=== PATIENT | female | born 1950 ===

== ENCOUNTER → 2016-12-10 | Outpatient (CLI) | payer OTHER | LOC: LAB SRH 10:49 | DX: Z01.812 Encounter for preprocedural laboratory examination (principal); N82.3 Fistula of vagina to large intestine | CPT/HCPCS: 90074; 91631; 92560 ==

== ENCOUNTER 2016-12-11 09:25 | Outpatient (CLI) | payer OTHER ==
--- NOTE | 2016-12-11 16:23 | DIAGNOSTIC IMAGING REPORT ---
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 Oral and rectal contrast also given. COMPARISON: Abdominal ultrasound 02/12/2013 and pelvic ultrasound 01/30/2013.. FINDINGS: ABDOMEN: Lung base are clear. Normal heart size. Hepatomegaly (20.2 cm) with diffuse steatosis. Cholecystectomy. Pancreas, spleen, adrenal glands and the kidneys are normal. Minor atherosclerosis. Moderate stool. There is a 5 cm fat filled midline supra umbilical ventral hernia. PELVIS: Although the rectum appears normal without mass or inflammatory changes, the fat plane between the rectum and vagina is indistinct and there is questionable contrast in the vagina. Tiny amount of air in the bladder. The uterus and adnexa are unremarkable. Surgical clips medial to the cecum suggestive of an appendectomy. Mild degenerative changes of the spine. IMPRESSION: 1. Normal rectum but fat plane between the rectum and vagina is indistinct with questionable contrast in the vagina. Recommend vaginal culture and if E. Coli is present, this would be consistent with a rectovaginal fistula. 2. Hepatomegaly and steatosis 3. Cholecystectomy and appendectomy 4. 5 cm fat filled supraumbilical ventral hernia All CT scans at this facility use dose modulation, iterative reconstruction, and/or weight-based dosing when appropriate to reduce radiation dose to as low as reasonably achievable.
== END 2016-12-11 23:00 ==
LOC: CT SRH 09:25
DX: Z01.812 Encounter for preprocedural laboratory examination (principal); Z01.818 Encounter for other preprocedural examination; N82.3 Fistula of vagina to large intestine; R16.0 Hepatomegaly, not elsewhere classified; E88.89 Other specified metabolic disorders; Z90.49 Acquired absence of other specified parts of digestive tract; Z90.89 Acquired absence of other organs; K43.9 Ventral hernia without obstruction or gangrene

== ENCOUNTER 2016-12-27 17:42 | Emergency (ER) | payer OTHER ==
--- NOTE | 2016-12-27 18:30 | DIAGNOSTIC IMAGING REPORT ---
PROCEDURE: XR CHEST 1 VIEW INDICATION: CHEST PAIN TECHNIQUE: Single view chest. 1813 hours COMPARISON: 07/26/2010 FINDINGS: Low lung volumes accentuates cardiomediastinal contour which appears grossly stable. No significant central venous congestion. The visible lung plascencia are clear. No pneumothorax. Mild lateral pleural thickening on the right, chronic. Intact osseous structures. IMPRESSION: 1. Stable chest. No acute disease.
--- NOTE | 2016-12-27 19:47 | DIAGNOSTIC IMAGING REPORT ---
PROCEDURE: CTA THORAX WITH CONTRAST INDICATION: PULMONARY EMBOLUS TECHNIQUE: 92 ml of Isovue 370 was injected intravenously and axial images were obtained of the chest with 3D sagittal and coronal MIP reconstructions. COMPARISON: 11/06/2008 FINDINGS: Normal opacification of the pulmonary arterial tree without filling defect. The main pulmonary outflow tract is dilated measuring 3.8 cm in transverse diameter. The other pulmonary arteries are of normal caliber. Thoracic aorta is normal caliber with trace atherosclerotic calcification. The great vessels demonstrate a normal branching pattern. Heart size is normal. No pericardial effusion. Benign appearing, mild mediastinal and bilateral hilar adenopathy. No suspicious or bulky adenopathy. No mediastinal mass. The esophagus is normal in caliber without hiatal hernia. The thyroid gland is mildly diffusely enlarged with coarse punctate calcification and a a left lower lobe peripherally calcified nodule. The lungs are clear. The airway is patent and branches normally. No pleural effusions or pneumothorax. Osseous structures are intact. The images obtained of the upper abdomen demonstrate mild hepatic steatosis, hepatomegaly, and cholecystectomy clips. IMPRESSION: 1. No pulmonary embolus. 2. Moderately enlarged main pulmonary outflow tract, increased in size compared to the prior study may indicate primary pulmonary hypertension. Correlate clinically. 3. Benign-appearing mediastinal and hilar adenopathy. 4. Findings called to the emergency room.
--- NOTE | 2016-12-27 21:21 | ED NURSING NOTES ---
Clinical Report - Nurses [facility] [address] [place] [address] 12/27/2016 17:44 Patient: ZARINA SERNA TRIAGE Triage time 17:51. Acuity: LEVEL 3. Chief Complaint: POSSIBLE ALLERGIC REACTION and . "tightness in the throat and the mid chest. I feel like I'm swelling up inside". Alert. No acute distress. --18:04 Brandie Lyman R.N. 17:51 12/27/16. BP: 128/70 taken on the left arm, while sitting. HR: 87. RR: 20. O2 saturation: 100%. Temp: 98.2 F. Pain level now: 01/27. --18:04 Brandie Lyman R.N. 17:51 12/27/16. BP: 128/70 taken on the left arm, while sitting. HR: 87. RR: 20. O2 saturation: 100%. Temp: 98.2 F. Pain level now: 01/27. --18:04 Brandie Lyman R.N. Weight: 81.6 kg estimated. Height/Length: 64 inches Estimated. BMI: 30.9. --17:57 Brandie Lyman R.N. Medications Nitrofurantoin Oral 100mg bid. --17:59 Brandie Lyman R.N. MetFORMIN HCl Oral 500 mg, daily. --18:00 Brandie Lyman R.N. Escitalopram Oxalate Oral, daily. --18:01 Brandie Lyman R.N. Lisinopril Oral. --18:01 Brandie Lyman R.N. Asa 81day. --18:02 Brandie Lyman R.N. Medication/allergy information source: the patient. --18:04 Brandie Lyman R.N. Allergies No Known Drug Allergy. --18:02 Brandie Lyman R.N. History Arrived by private vehicle. Historian: patient. Accompanied by family. Primary physician (amy). This started today. She has had swelling- feel like swelling up inside. No skin rash or itching. 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 PAST MEDICAL HX: Immunizations: status is unknown. The patient is post-menopausal. SOCIAL HX: Never smoker. No alcohol use or drug use. ABUSE ASSESSMENT: No report of abuse. FALL RISK ASSESSMENT: Fall risk assessment completed. No fall risk identified. NUTRITIONAL RISK ASSESSMENT: The nutritional risk assessment revealed no deficiencies. FUNCTIONAL ASSESSMENT: Functional assessment: no impairments noted. LEARNING NEEDS ASSESSMENT: The learning needs assessment revealed no barriers. SKIN INTEGRITY ASSESSMENT: Skin integrity risk assessment completed. No skin integrity risk identified. --18:04 Brandie Lyman R.N. PROBLEMS: Fall. Contusion. Tetanus Status. Immunizations. Gallstone(s). Hypertension. Diabetes Mellitus. Anxiety Reaction. Depression. --17:55 Brandie Lyman R.N. ADDITIONAL SURGERIES: Appendectomy. Bowel Surgery. Laparoscopy. Tonsillectomy & Adenoidectomy. --17:55 Brandie Lyman R.N. Interventions ID band on patient. To room. --18:04 Brandie Lyman R.N. PHYSICAL ASSESSMENT Ambulatory to room. Patient gowned. GENERAL / NEURO / PSYCH: Alert. Appears anxious. Oriented X 4. HEENT: Mucous membranes are pink. RESPIRATORY: Respirations not labored. CVS: Normal sinus rhythm noted. GI / : Abdomen nontender. SKIN: Skin is intact, warm and dry. No skin rash. --18:05 Brandie Lyman R.N. NURSING PROGRESS NOTES 18:05 12/27/2016 Site #1 started via IV in the left hand with an 20g angiocath, with aseptic technique and good blood return; one attempt. Blood drawn: rainbow set. Labeled in the presence of the patient and sent to the lab. Saline lock flushed with 10 mL saline. --18:05 Carmita Machado R.N. panel monitor, pulse oximeter and NIBP monitor placed on patient; athletic monitor- Lead II; monitor alarms on. Patient gowned. Head of bed elevated. Two patient identifiers checked. Call light placed in reach. Side rails up x 1. Bed placed in lowest position. Brakes of bed on. Patient ready for evaluation- chart flagged. --18:05 Brandie Lyman R.N. EKG time: (1808). EKG was performed by a tech and shown to the ED physician. --18:06 Brandie Lyman R.N. 18:06 12/27/16. BP: 128/70. HR: 103. RR: 20. O2 saturation: 99% on room air. --18:07 Brandie Lyman R.N. <<STRICKEN ENTRY-- EKG time: (1807). EKG was ordered, performed by a tech and shown to the ED physician. --18:08 Maricarmen Faulkner, ER Tech1 --END STRIKE>> Correction --18:08 Maricarmen Faulkner, ER Tech1 Patient transported to [place] by stretcher with tech. --19:10 Brandie Lyman R.N. ( Ambulated to the bathroom, voided w/o difficulty.). --19:32 Brandie Lyman R.N. 19:32 12/27/16. BP: 123/50. HR: 90. RR: 20. O2 saturation: 95% on room air. --19:32 Brandie Lyman R.N. 21:32 12/27/2016 Benadryl (DiphenhydrAMINE HCl) IVP 25 mg given over 1 minute(s) via site #1. Allergies verified, confirmed 5 rights and sedative warning given to the patient and patient's family. IV patency established. IV site checked: no pain, redness, or swelling. IV flushed thoroughly pre- and post-medication administration. --21:40 Brandie Lyman R.N. 21:35 12/27/2016 Site #1 removed upon discharge. Catheter intact. Bandaid applied. --21:40 Brandie Lyman R.N. DISPOSITION / DISCHARGE 21:36. No learning barriers present. Discharge instructions provided and reviewed with the patient. Reviewed medication(s) side effects, precautions, dosing and course information. Prescription(s) given to the patient. Patient verbalized understanding. Written instructions provided in Grenadian. The patient was discharged home and accompanied by spouse. She left the Emergency Department ambulatory and via private vehicle. Spouse driving. Medication list reviewed and validated. --21:42 Brandie Lyman R.N. 21:40 12/27/16. BP: 118/58. HR: 87. RR: 18. O2 saturation: 96%. Temp: deferred. Pain level now: . 19:32 12/27/16. BP: 123/50. HR: 90. RR: 20. O2 saturation: 95% on room air. 18:06 12/27/16. BP: 128/70. HR: 103. RR: 20. O2 saturation: 99% on room air. 17:51 12/27/16. BP: 128/70 taken on the left arm, while sitting. HR: 87. RR: 20. O2 saturation: 100%. Temp: 98.2 F. Pain level now: 01/27. --21:42 Brandie Lyman R.N. Locked/Released at 12/27/2016 21:42 by Brandie Lyman R.N.
--- NOTE | 2016-12-27 21:21 | ED ORDER SUMMARY ---
..... 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) (17:58 12/27/2016 HBivens A.R.N.P.) (Ack 18:01 TBergley) (18:04 KKnebel R.N.) Chest 1V Urgent (17:58 12/27/2016 HBivens A.R.N.P.) (Ack 18:01 TBergley) (18:20 MCampbell) CBC w Diff Urgent (17:58 12/27/2016 HBivens A.R.N.P.) (Ack 18:01 TBergley) (18:04 KKnebel R.N.) CMP Urgent (17:58 12/27/2016 HBivens A.R.N.P.) (Ack 18:01 TBergley) (18:05 KKnebel R.N.) CPK Urgent (17:58 12/27/2016 HBivens A.R.N.P.) (Ack 18:01 TBergley) (18:05 KKnebel R.N.) Troponin-I Urgent (17:58 12/27/2016 HBivens A.R.N.P.) (Ack 18:01 TBergley) (18:05 KKnebel R.N.) EKG - ER Stat (17:58 12/27/2016 HBivens A.R.N.P.) (Ack 18:01 TBergley) (18:04 KKnebel R.N.) D-Dimer Urgent (18:38 12/27/2016 HBivens A.R.N.P.) (18:42 TBergley) CPK Urgent (18:38 12/27/2016 HBivens A.R.N.P.) (18:42 TBergley) Troponin-I Urgent (18:38 12/27/2016 HBivens A.R.N.P.) (18:42 TBergley) CTA Thorax w Cont (No) (normal) Urgent (19:00 12/27/2016 HBivens A.R.N.P.) (Ack 19:01 TBergley) (19:23 SRoberts R.N.) MEDICATION ORDERS: IV FLUIDS: IV Saline Lock (17:58 12/27/2016 HBivens A.R.N.P.) (18:05 OHnebel R.N.) Benadryl IV 25 mg (NOW) (21:19 12/27/2016 HBivens A.R.N.P.) (21:40 SRoberts R.N.) ORDER SHEET NOTES: [Electronically signed by Brandie Lyman R.N. (21:42 12/27/2016)] [Electronically signed by Awa Wilson.R.N.P. (22:51 12/27/2016)] [Electronically locked/signed by Brandie Lyman R.N. (21:42 12/27/2016)]
--- NOTE | 2016-12-27 21:21 | ED CLINICAL REPORT ---
Clinical Report - Physicians/Mid Levels [facility] [address] [place] [address] 12/27/2016 17:44 Patient: ZARINA SERNA Time Seen: 17:54; initial patient contact, initial documentation, patient care assumed. Arrived- By private vehicle. Historian- patient. HISTORY OF PRESENT ILLNESS Chief Complaint: ALLERGIC REACTION. This started today and is still present. It was abrupt in onset and has been constant. No skin rash, dizziness or fainting episodes. She has not had itching, swelling or trouble swallowing. She has had mild difficulty breathing at rest (feels tight). There has been no dyspnea on exertion, orthopnea, paroxysmal nocturnal dyspnea or wheezing. A possible cause has been identified. She has recently taken an antibiotic (macrobid). The patient was not assessed by EMS prior to arrival. No treatment prior to arrival. (says she started macrobid yesterday for uti and thinks she is having allergic reactions, because today her throat and chest feel tight). Similar symptoms previously: Once, worse. ( says she was outside hiking one time and face and throat started to swell to something she was allergic to). Recent medical care: The patient was seen recently in the office. ( saw yesterday). REVIEW OF SYSTEMS No sore throat or cough. She has had central chest pain ('tight') described as radiating to the neck. No modifying factors or associated symptoms. All systems otherwise negative, except as recorded above. PAST HISTORY See nurses notes. PROBLEMS: Fall. Contusion. Tetanus Status. Immunizations. Gallstone(s). Hypertension. Diabetes Mellitus. Anxiety Reaction. Depression. --17:55 Brandie Lyman R.N. ADDITIONAL SURGERIES: Appendectomy. Bowel Surgery. Laparoscopy. Tonsillectomy & Adenoidectomy. --17:55 Brandie Lyman R.N. SOCIAL HISTORY Never smoker. No alcohol use or drug use. No recent travel. Is a local resident. She lives with spouse. FAMILY HISTORY Negative. ADDITIONAL NOTES The nursing notes have been reviewed with agreement regarding the chief complaint, HPI, ROS, PMH and patient medications and allergies. PHYSICAL EXAM Vital Signs: 12/27/2016 17:51 BP: 128/70. HR: 87. RR: 20. O2 saturation: 100%. Temp: 98.2 F. Pain level now: 01/27. Have been reviewed as normal and appear to be correct. Appearance: Alert. Oriented X3. No acute distress. Head and Neck: Normal external inspection. Eyes: Pupils equal, round and reactive to light. ENT: Ears normal. Nose normal. Pharynx normal. Voice normal. Neck: Neck supple. CVS: Normal heart rate and rhythm. Heart sounds normal. Respiratory: No respiratory distress. Breath sounds normal. Abdomen: Nontender. No organomegaly. Moderately obese. Skin: Skin warm and dry. Normal skin turgor. Extremities: Normal external inspection. Extremities nontender. Skin: Normal skin color. No rash. No urticaria. Neuro: Oriented X 3. No motor deficit. No sensory deficit. LABS, X-RAYS, AND EKG EKG: EKG time: (1807). No acute process. No acute ischemia. Normal EKG. Rate: 85. Normal EKG. EKG unchanged when compared with prior EKG. The study has been interpreted contemporaneously by me (and dr anderson). The EKG appears to be a good tracing. Interpretation time: 1813. EKG #2: Performed. Chest X-ray: Normal Chest X-Ray. (IMPRESSION: 1. Stable chest. No acute disease. Electronically Final signed by:Iqra Law MD 12/27/2016 6:30:10 PM). The X-rays were interpreted by the radiologist and contemporaneously by me. Interpretation time: 18:37. Chest CT: No acute disease. (IMPRESSION: 1. No pulmonary embolus. 2. Moderately enlarged main pulmonary outflow tract, increased in size compared to the prior study may indicate primary pulmonary hypertension. Correlate clinically. 3. Benign-appearing mediastinal and hilar adenopathy. 4. Findings called to the emergency room. Electronically Final signed by:Iqra Law MD 12/27/2016 7:47:25 PM). The study was interpreted by the radiologist and discussed with the radiologist. Interpretation time: 19:50. Laboratory Tests: CBC w Diff: (KENDY: 12/27/2016 18:00) ( [facility] [place] 12/27/2016 18:11) Final results Test Result Flag Units (Reference) WHITE BLOOD COUNT 8.0 K/uL (4.5-11.5) RED BLOOD COUNT 4.77 M/uL (4.00-5.20) HEMOGLOBIN 13.1 gm/dL (12.0-16.0) HEMATOCRIT 39.3 % (36.0-46.0) MEAN CELL VOLUME 82 fL (80-100) MEAN CORPUSCULAR HGB 28 pg (26-34) MEAN CORPUSCULAR HGB CONC 33 g/dL (31-37) RED CELL DISTRIBUTION WIDTH 14.1 % (11.6-14.8) PLATELET COUNT 186 K/uL (150-400) NEUTROPHIL % 65.4 % (50-75) LYMPH % 24.7 L % (25-40) MONO % 7.7 % (3-14) EOSINOPHIL % 1.6 % (0-4) BASOPHIL % 0.6 % (0-2) [id number]: (KENDY: 12/27/2016 18:00) ( [facility] [place] 12/27/2016 18:55) Final results Test Result Flag Units (Reference) D-DIMER QUANTITATIVE 0.61 H ug/mLFEU (0.27-0.52) The primary value of this quantitative assay relates toits negative predictive value (i.e. exclusion) of pulmonaryembolism/deep vein thrombosis/DIC.Elevated levels of d-dimer may also occur with:, age, cancer, inflammation, liver disease,post-op, infection, hematoma, coronary disease, peripheralarteriopathy, bleeding disorders and thrombolytic treatment.Results should be correlated with other clinical andradiological data.Testing Methodology: Latex Immunoassay CPK: (KENDY: 12/27/2016 20:00) ( [facility] [place] [place] 12/27/2016 20:21) Final results Test Result Flag Units (Reference) CPK 40 U/L (24-260) TROPONIN I <0.05 ng/mL (0.00-1.5) TROPONIN REFERENCE RANGE:<0.1 NEGATIVE0.1-1.5 INDETERMINANT>1.5 POSITIVE CMP: (KENDY: 12/27/2016 18:00) ( [facility] 12/27/2016 18:34) Final results Test Result Flag Units (Reference) GLUCOSE 62 L mg/dL (70-110) BUN 11 mg/dL (7-18) CREATININE 0.6 mg/dL (0.6-1.3) Estimated GFR >60 mL/min Estimated GFR- >60 mL/min Note: Persistent reduction over 3 months in eGFR<60 mL/min/1.73 m2 defines CKD. Patients with eGFR values>=60 mL/min/1.73 m2 may also have CKD if evidence ofpersistent proteinuria. Additional information may be foundat www.kidney.org. SODIUM 143 mmol/L (136-145) POTASSIUM 3.5 mmol/L (3.5-5.1) CHLORIDE 107 mmol/L (98-107) CARBON DIOXIDE 26 mmol/L (21-32) CALCIUM 9.1 mg/dL (8.5-10.1) TOTAL PROTEIN 7.1 g/dL (6.4-8.2) ALBUMIN 3.4 g/dL (3.3-5.0) BILIRUBIN, TOTAL 0.3 mg/dL (0.0-1.0) ALKALINE PHOSPHATASE 119 H U/L (46-116) AST (SGOT) 26 U/L (15-37) ALT (SGPT) 25 U/L (12-78) CPK 27 U/L (24-260) TROPONIN I 0.06 ng/mL (0.00-1.5) TROPONIN REFERENCE RANGE:<0.1 NEGATIVE0.1-1.5 INDETERMINANT>1.5 POSITIVE . PROGRESS AND PROCEDURES Course of Care: 19:46 12/27/16. pt resting quietly, nad, updated with current results and need for more blood work due at 1999, pt stated chest tightness was gone 2109. tx plan discussed and agreed to change abx, just in case, pt still symptom free at this time, but also going to give dose of benadryl prior to dc, since cardiac condition has been ruled out. 12/27/2016 19:32 BP: 123/50. HR: 90. RR: 20. O2 saturation: 95%. Vital Signs: have been reviewed as normal and appear to be correct. Patient counseled in person regarding the patient's stable condition, test results and diagnosis. 2107. Differential Diagnosis: I considered costochondritis, pleurisy, myocardial infarction, intermediate coronary syndrome, unstable angina, angina, pulmonary embolism, pneumonia, gastroesophageal reflux disease, esophagitis and esophageal spasm as a possible cause of chest pain in this patient. This is a partial list of diagnoses considered. Other possible considerations: allergic reaction, anaphylaxis, adverse effect from med. Disposition: Discharged home in good and improved condition (21:21). Condition: good and stable. CLINICAL IMPRESSION Atypical chest pain .12 lead EKG performed. Adverse drug reaction. (macrobid). INSTRUCTIONS Warnings: GENERAL WARNINGS: Return or contact your physician immediately if your condition worsens or changes unexpectedly, if not improving as expected, or if other problems arise. Specifically return if problem worsens. Prescription Medications: Bactrim DS 800 mg / 160 mg: take 1 tablet orally every 12 hours for 5 days. No refill. Follow-up: Follow up with your doctor in two days even if well. Call for an appointment. Summary of care provided to patient. Understanding of the discharge instructions verbalized by patient. (Electronically signed by Awa Wilson A.R.N.P. 12/27/2016 22:51)
--- NOTE | 2016-12-27 21:21 | ED NURSING NOTES ---
Clinical Report - [facility] [address] [place] [address] 12/27/2016 17:44 Patient: ZARINA SERNA TRIAGE Triage time 17:51. Acuity: LEVEL 3. Chief Complaint: POSSIBLE ALLERGIC REACTION and . "tightness in the throat and the mid chest. I feel like I'm swelling up inside". Alert. No acute distress. --18:04 Brandie Lyman R.N. 17:51 12/27/16. BP: 128/70 taken on the left arm, while sitting. HR: 87. RR: 20. O2 saturation: 100%. Temp: 98.2 F. Pain level now: 01/27. --18:04 Brandie Lyman R.N. 17:51 12/27/16. BP: 128/70 taken on the left arm, while sitting. HR: 87. RR: 20. O2 saturation: 100%. Temp: 98.2 F. Pain level now: 01/27. --18:04 Brandie Lyman R.N. Weight: 81.6 kg estimated. Height/Length: 64 inches Estimated. BMI: 30.9. --17:57 Brandie Lyman R.N. Medications Nitrofurantoin Oral 100mg bid. --17:59 Brandie Lyman R.N. MetFORMIN HCl Oral 500 mg, daily. --18:00 Brandie Lyman R.N. Escitalopram Oxalate Oral, daily. --18:01 Brandie Lyman R.N. Lisinopril Oral. --18:01 Brandie Lyman R.N. Asa 81day. --18:02 Brandie Lyman R.N. Medication/allergy information source: the patient. --18:04 Brandie Lyman R.N. Allergies No Known Drug Allergy. --18:02 Brandie Lyman R.N. History Arrived by private vehicle. Historian: patient. Accompanied by family. Primary physician (amy). This started today. She has had swelling- feel like swelling up inside. No skin rash or itching. Treatment DATA LEAD: None. PAST MEDICAL HX: Immunizations: status is unknown. The patient is post-menopausal. SOCIAL HX: Never smoker. No alcohol use or drug use. ABUSE ASSESSMENT: No report of abuse. FALL RISK ASSESSMENT: Fall risk assessment completed. No fall risk identified. NUTRITIONAL RISK ASSESSMENT: The nutritional risk assessment revealed no deficiencies. FUNCTIONAL ASSESSMENT: Functional assessment: no impairments noted. LEARNING NEEDS ASSESSMENT: The learning needs assessment revealed no barriers. SKIN INTEGRITY ASSESSMENT: Skin integrity risk assessment completed. No skin integrity risk identified. --18:04 Brandie Lyman R.N. PROBLEMS: Fall. Contusion. Tetanus Status. Immunizations. Gallstone(s). Hypertension. Diabetes Mellitus. Anxiety Reaction. Depression. --17:55 Brandie Lyman R.N. ADDITIONAL SURGERIES: Appendectomy. Bowel Surgery. Laparoscopy. Tonsillectomy & Adenoidectomy. --17:55 Brandie Lyman R.N. Interventions ID band on patient. To room. --18:04 Brandie Lyman R.N. PHYSICAL ASSESSMENT Ambulatory to room. Patient gowned. GENERAL / NEURO / PSYCH: Alert. Appears anxious. Oriented X 4. HEENT: Mucous membranes are pink. RESPIRATORY: Respirations not labored. CVS: Normal sinus rhythm noted. GI / : Abdomen nontender. SKIN: Skin is intact, warm and dry. No skin rash. --18:05 Brandie Lyman R.N. NURSING PROGRESS NOTES 18:05 12/27/2016 Site #1 started via IV in the left hand with an 20g angiocath, with aseptic technique and good blood return; one attempt. Blood drawn: rainbow set. Labeled in the presence of the patient and sent to the lab. Saline lock flushed with 10 mL saline. --18:05 Carmita Machado R.N. quality assurance monitor chassis, pulse oximeter and NIBP monitor placed on patient; quality assurance monitor chassis- Lead II; monitor alarms on. Patient gowned. Head of bed elevated. Two patient identifiers checked. Call light placed in reach. Side rails up x 1. Bed placed in lowest position. Brakes of bed on. Patient ready for evaluation- chart flagged. --18:05 Brandie Lyman R.N. EKG time: (1808). EKG was performed by a tech and shown to the ED physician. --18:06 Brandie Lyman R.N. 18:06 12/27/16. BP: 128/70. HR: 103. RR: 20. O2 saturation: 99% on room air. --18:07 Brandie Lyman R.N. <<STRICKEN ENTRY-- EKG time: (1807). EKG was ordered, performed by a tech and shown to the ED physician. --18:08 Maricarmen Faulkner, ER Tech1 --END STRIKE>> Correction --18:08 Maricarmen Faulkner, ER Tech1 Patient transported to [place] by stretcher with tech. --19:10 Brandie Lyman R.N. ( Ambulated to the bathroom, voided w/o difficulty.). --19:32 Brandie Lyman R.N. 19:32 12/27/16. BP: 123/50. HR: 90. RR: 20. O2 saturation: 95% on room air. --19:32 Brandie Lyman R.N. 21:32 12/27/2016 Benadryl (DiphenhydrAMINE HCl) IVP 25 mg given over 1 minute(s) via site #1. Allergies verified, confirmed 5 rights and sedative warning given to the patient and patient's family. IV patency established. IV site checked: no pain, redness, or swelling. IV flushed thoroughly pre- and post-medication administration. --21:40 Brandie Lyman R.N. 21:35 12/27/2016 Site #1 removed upon discharge. Catheter intact. Bandaid applied. --21:40 Brandie Lyman R.N. DISPOSITION / DISCHARGE 21:36. No learning barriers present. Discharge instructions provided and reviewed with the patient. Reviewed medication(s) side effects, precautions, dosing and course information. Prescription(s) given to the patient. Patient verbalized understanding. Written instructions provided in Maldivian. The patient was discharged home and accompanied by spouse. She left the Emergency Department ambulatory and via private vehicle. Spouse driving. Medication list reviewed and validated. --21:42 Brandie Lyman R.N. 21:40 12/27/16. BP: 118/58. HR: 87. RR: 18. O2 saturation: 96%. Temp: deferred. Pain level now: . 19:32 12/27/16. BP: 123/50. HR: 90. RR: 20. O2 saturation: 95% on room air. 18:06 12/27/16. BP: 128/70. HR: 103. RR: 20. O2 saturation: 99% on room air. 17:51 12/27/16. BP: 128/70 taken on the left arm, while sitting. HR: 87. RR: 20. O2 saturation: 100%. Temp: 98.2 F. Pain level now: 01/27. --21:42 Brandie Lyman R.N. Locked/Released at 12/27/2016 21:42 by Brandie Lyman R.N.
--- NOTE | 2016-12-27 21:21 | ED CLINICAL REPORT ---
Clinical Report - Physicians/Mid Levels [facility] [address] [place] [address] 12/27/2016 17:44 Patient: ZARINA SERNA Time Seen: 17:54; initial patient contact, initial documentation, patient care assumed. Arrived- By private vehicle. Historian- patient. HISTORY OF PRESENT ILLNESS Chief Complaint: ALLERGIC REACTION. This started today and is still present. It was abrupt in onset and has been constant. No skin rash, dizziness or fainting episodes. She has not had itching, swelling or trouble swallowing. She has had mild difficulty breathing at rest (feels tight). There has been no dyspnea on exertion, orthopnea, paroxysmal nocturnal dyspnea or wheezing. A possible cause has been identified. She has recently taken an antibiotic (macrobid). The patient was not assessed by EMS prior to arrival. No treatment prior to arrival. (says she started macrobid yesterday for uti and thinks she is having allergic reactions, because today her throat and chest feel tight). Similar symptoms previously: Once, worse. ( says she was outside hiking one time and face and throat started to swell to something she was allergic to). Recent medical care: The patient was seen recently in the office. ( saw yesterday). REVIEW OF SYSTEMS No sore throat or cough. She has had central chest pain ('tight') described as radiating to the neck. No modifying factors or associated symptoms. All systems otherwise negative, except as recorded above. PAST HISTORY See nurses notes. PROBLEMS: Fall. Contusion. Tetanus Status. Immunizations. Gallstone(s). Hypertension. Diabetes Mellitus. Anxiety Reaction. Depression. --17:55 Brandie Lyman R.N. ADDITIONAL SURGERIES: Appendectomy. Bowel Surgery. Laparoscopy. Tonsillectomy & Adenoidectomy. --17:55 Brandie Lyman R.N. SOCIAL HISTORY Never smoker. No alcohol use or drug use. No recent travel. Is a local resident. She lives with spouse. FAMILY HISTORY Negative. ADDITIONAL NOTES The nursing notes have been reviewed with agreement regarding the chief complaint, HPI, ROS, PMH and patient medications and allergies. PHYSICAL EXAM Vital Signs: 12/27/2016 17:51 BP: 128/70. HR: 87. RR: 20. O2 saturation: 100%. Temp: 98.2 F. Pain level now: 01/27. Have been reviewed as normal and appear to be correct. Appearance: Alert. Oriented X3. No acute distress. Head and Neck: Normal external inspection. Eyes: Pupils equal, round and reactive to light. ENT: Ears normal. Nose normal. Pharynx normal. Voice normal. Neck: Neck supple. CVS: Normal heart rate and rhythm. Heart sounds normal. Respiratory: No respiratory distress. Breath sounds normal. Abdomen: Nontender. No organomegaly. Moderately obese. Skin: Skin warm and dry. Normal skin turgor. Extremities: Normal external inspection. Extremities nontender. Skin: Normal skin color. No rash. No urticaria. Neuro: Oriented X 3. No motor deficit. No sensory deficit. LABS, X-RAYS, AND EKG EKG: EKG time: (1807). No acute process. No acute ischemia. Normal EKG. Rate: 85. Normal EKG. EKG unchanged when compared with prior EKG. The study has been interpreted contemporaneously by me (and dr anderson). The EKG appears to be a good tracing. Interpretation time: 1813. EKG #2: Performed. Chest X-ray: Normal Chest X-Ray. (IMPRESSION: 1. Stable chest. No acute disease. Electronically Final signed by:Iqra Law MD 12/27/2016 6:30:10 PM). The X-rays were interpreted by the radiologist and contemporaneously by me. Interpretation time: 18:37. Chest CT: No acute disease. (IMPRESSION: 1. No pulmonary embolus. 2. Moderately enlarged main pulmonary outflow tract, increased in size compared to the prior study may indicate primary pulmonary hypertension. Correlate clinically. 3. Benign-appearing mediastinal and hilar adenopathy. 4. Findings called to the emergency room. Electronically Final signed by:Iqra Law MD 12/27/2016 7:47:25 PM). The study was interpreted by the radiologist and discussed with the radiologist. Interpretation time: 19:50. Laboratory Tests: CBC w Diff: (KENDY: 12/27/2016 18:00) ( [facility] 12/27/2016 18:11) Final results Test Result Flag Units (Reference) WHITE BLOOD COUNT 8.0 K/uL (4.5-11.5) RED BLOOD COUNT 4.77 M/uL (4.00-5.20) HEMOGLOBIN 13.1 gm/dL (12.0-16.0) HEMATOCRIT 39.3 % (36.0-46.0) MEAN CELL VOLUME 82 fL (80-100) MEAN CORPUSCULAR HGB 28 pg (26-34) MEAN CORPUSCULAR HGB CONC 33 g/dL (31-37) RED CELL DISTRIBUTION WIDTH 14.1 % (11.6-14.8) PLATELET COUNT 186 K/uL (150-400) NEUTROPHIL % 65.4 % (50-75) LYMPH % 24.7 L % (25-40) MONO % 7.7 % (3-14) EOSINOPHIL % 1.6 % (0-4) BASOPHIL % 0.6 % (0-2) [id number]: (KEDNY: 12/27/2016 18:00) ( [facility] 12/27/[place] 18:55) Final results Test Result Flag Units (Reference) D-DIMER QUANTITATIVE 0.61 H ug/mLFEU (0.27-0.52) The primary value of this quantitative assay relates toits negative predictive value (i.e. exclusion) of pulmonaryembolism/deep vein thrombosis/DIC.Elevated levels of d-dimer may also occur with:, age, cancer, inflammation, liver disease,post-op, infection, hematoma, coronary disease, peripheralarteriopathy, bleeding disorders and thrombolytic treatment.Results should be correlated with other clinical andradiological data.Testing Methodology: Latex Immunoassay CPK: (KENDY: 12/27/2016 20:00) ( [facility] 12/27/2016 20:21) Final results Test Result Flag Units (Reference) CPK 40 U/L (24-260) TROPONIN I <0.05 ng/mL (0.00-1.5) TROPONIN REFERENCE RANGE:<0.1 NEGATIVE0.1-1.5 INDETERMINANT>1.5 POSITIVE CMP: (KENDY: 12/27/2016 18:00) ( [facility] 12/27/2016 18:34) Final results Test Result Flag Units (Reference) GLUCOSE 62 L mg/dL (70-110) BUN 11 mg/dL (7-18) CREATININE 0.6 mg/dL (0.6-1.3) Estimated GFR >60 mL/min Estimated GFR- >60 mL/min Note: Persistent reduction over 3 months in eGFR<60 mL/min/1.73 m2 defines CKD. Patients with eGFR values>=60 mL/min/1.73 m2 may also have CKD if evidence ofpersistent proteinuria. Additional information may be foundat www.kidney.org. SODIUM 143 mmol/L (136-145) POTASSIUM 3.5 mmol/L (3.5-5.1) CHLORIDE 107 mmol/L (98-107) CARBON DIOXIDE 26 mmol/L (21-32) CALCIUM 9.1 mg/dL (8.5-10.1) TOTAL PROTEIN 7.1 g/dL (6.4-8.2) ALBUMIN 3.4 g/dL (3.3-5.0) BILIRUBIN, TOTAL 0.3 mg/dL (0.0-1.0) ALKALINE PHOSPHATASE 119 H U/L (46-116) AST (SGOT) 26 U/L (15-37) ALT (SGPT) 25 U/L (12-78) CPK 27 U/L (24-260) TROPONIN I 0.06 ng/mL (0.00-1.5) TROPONIN REFERENCE RANGE:<0.1 NEGATIVE0.1-1.5 INDETERMINANT>1.5 POSITIVE . PROGRESS AND PROCEDURES Course of Care: 19:46 12/27/16. pt resting quietly, nad, updated with current results and need for more blood work due at 1999, pt stated chest tightness was gone 2109. tx plan discussed and agreed to change abx, just in case, pt still symptom free at this time, but also going to give dose of benadryl prior to dc, since cardiac condition has been ruled out. 12/27/2016 19:32 BP: 123/50. HR: 90. RR: 20. O2 saturation: 95%. Vital Signs: have been reviewed as normal and appear to be correct. Patient counseled in person regarding the patient's stable condition, test results and diagnosis. 2107. Differential Diagnosis: I considered costochondritis, pleurisy, myocardial infarction, intermediate coronary syndrome, unstable angina, angina, pulmonary embolism, pneumonia, gastroesophageal reflux disease, esophagitis and esophageal spasm as a possible cause of chest pain in this patient. This is a partial list of diagnoses considered. Other possible considerations: allergic reaction, anaphylaxis, adverse effect from med. Disposition: Discharged home in good and improved condition (21:21). Condition: good and stable. CLINICAL IMPRESSION Atypical chest pain .12 lead EKG performed. Adverse drug reaction. (macrobid). INSTRUCTIONS Warnings: GENERAL WARNINGS: Return or contact your physician immediately if your condition worsens or changes unexpectedly, if not improving as expected, or if other problems arise. Specifically return if problem worsens. Prescription Medications: Bactrim DS 800 mg / 160 mg: take 1 tablet orally every 12 hours for 5 days. No refill. Follow-up: Follow up with your doctor in two days even if well. Call for an appointment. Summary of care provided to patient. Understanding of the discharge instructions verbalized by patient. (Electronically signed by Awa Wilson A.R.N.P. 12/27/2016 22:51)
--- NOTE | 2016-12-27 21:21 | ED ORDER SUMMARY ---
..... Patient: ZARINA SERNA OrderSheet [facility] VisitID: [id number] [place] [address] 66y, F Registration Date/Time: 12/27/2016 ORDER SHEET Weight: 81.6 kg (estimated) Allergies: No Known Drug Allergy GENERAL ORDERS: Oxygen (2 L/min) (NC) (17:58 12/27/2016 HBivens A.R.N.P.) (Ack 18:01 TBergley) (18:07 SRoberts R.N.) Wood Filler (Continuous) (17:58 12/27/2016 HBivens A.R.N.P.) (Ack 18:01 TBergley) (18:04 KKnebel R.N.) Chest 1V Urgent (17:58 12/27/2016 HBivens A.R.N.P.) (Ack 18:01 TBergley) (18:20 MCampbell) CBC w Diff Urgent (17:58 12/27/2016 HBivens A.R.N.P.) (Ack 18:01 TBergley) (18:04 KKnebel R.N.) CMP Urgent (17:58 12/27/2016 HBivens A.R.N.P.) (Ack 18:01 TBergley) (18:05 KKnebel R.N.) CPK Urgent (17:58 12/27/2016 HBivens A.R.N.P.) (Ack 18:01 TBergley) (18:05 KKnebel R.N.) Troponin-I Urgent (17:58 12/27/2016 HBivens A.R.N.P.) (Ack 18:01 TBergley) (18:05 KKnebel R.N.) EKG - ER Stat (17:58 12/27/2016 HBivens A.R.N.P.) (Ack 18:01 TBergley) (18:04 KKnebel R.N.) D-Dimer Urgent (18:38 12/27/2016 HBivens A.R.N.P.) (18:42 TBergley) CPK Urgent (18:38 12/27/2016 HBivens A.R.N.P.) (18:42 TBergley) Troponin-I Urgent (18:38 12/27/2016 HBivens A.R.N.P.) (18:42 TBergley) CTA Thorax w Cont (No) (normal) Urgent (19:00 12/27/2016 HBivens A.R.N.P.) (Ack 19:01 TBergley) (19:23 SRoberts R.N.) MEDICATION ORDERS: IV FLUIDS: IV Saline Lock (17:58 12/27/2016 HBivens A.R.N.P.) (18:05 OHnebel R.N.) Benadryl IV 25 mg (NOW) (21:19 12/27/2016 HBivens A.R.N.P.) (21:40 SRoberts R.N.) ORDER SHEET NOTES: [Electronically signed by Brandie Lyman R.N. (21:42 12/27/2016)] [Electronically signed by Awa Wilson.R.N.P. (22:51 12/27/2016)] [Electronically locked/signed by Brandie Lyman R.N. (21:42 12/27/2016)]
--- NOTE | 2016-12-27 22:52 | ED MED RECONCILIATION SUMMARY ---
Patient: ZARINA SERNA Medication Reconciliation Report [facility] VisitID: [id number] [address] [place] [address] 66y, F Registration Date/Time: 12/27/2016 Weight: 81.6 kg Height/Length: 64 in. BMI: 30.9 ALLERGIES: No Known Drug Allergy The patient's Home Medications are listed below: THE FOLLOWING MEDICATIONS NEED TO BE RECONCILED: Asa 81day Escitalopram Oxalate Oral, daily Lisinopril Oral MetFORMIN HCl Oral 500 mg, daily Nitrofurantoin Oral 100mg bid The source(s) of the original Home Medication information: patient The following Medications were given to the patient in the Emergency Department: Benadryl [IVP] IVP 25 mg, administered: 12/27/2016 9:32:00 PM The following Medications were prescribed to the patient: Bactrim DS 800 mg / 160 mg: take 1 tablet orally every 12 hours for 5 days. No refill. -- Awa Wilson A.R.N.PKrystal
--- NOTE | 2016-12-27 22:52 | ED MAR SUMMARY ---
..... Medication Administration Record [facility] [address] [place] [address] Patient: ZARINA SERNA Visit ID: [id number] 66y, F Weight: 81.6 kg Height/Length: 64 in BMI: 30.9 ALLERGIES: No Known Drug Allergy Given 21:32 12/27/2016 Brandie Lyman R.N. Medication Administered: BENADRYL [IVP] (DIPHENHYDRAMINE HCL), Dose: 25 mg IVP over 1 minute(s), Site: #1 left hand. Medication Ordered: Benadryl IV 25 mg (NOW).
--- NOTE | 2016-12-27 22:52 | ED MED RECONCILIATION SUMMARY ---
Patient: ZARINA SERNA Medication Reconciliation Report [facility] VisitID: [id number] [address] [place] [address] 66y, F Registration Date/Time: 12/27/2016 Weight: 81.6 kg Height/Length: 64 in. BMI: 30.9 ALLERGIES: No Known Drug Allergy The patient's Home Medications are listed below: THE FOLLOWING MEDICATIONS NEED TO BE RECONCILED: Asa 81day Escitalopram Oxalate Oral, daily Lisinopril Oral MetFORMIN HCl Oral 500 mg, daily Nitrofurantoin Oral 100mg bid The source(s) of the original Home Medication information: patient The following Medications were given to the patient in the Emergency Department: Benadryl [IVP] IVP 25 mg, administered: 12/27/2016 9:32:00 PM The following Medications were prescribed to the patient: Bactrim DS 800 mg / 160 mg: take 1 tablet orally every 12 hours for 5 days. No refill. -- Awa Wilson A.R.N.PKrystal
--- NOTE | 2016-12-27 22:52 | ED DISCHARGE INSTRUCTIONS ---
Patient: ZARINA SERNA General Instructions [facility] VisitID: [id number] [place] [address] 66y, F Registration Date/Time: 12/27/2016 Atypical chest pain .12 lead EKG performed. Adverse drug reaction. (macrobid). INSTRUCTIONS Warnings: GENERAL WARNINGS: Return or contact your physician immediately if your condition worsens or changes unexpectedly, if not improving as expected, or if other problems arise. Specifically return if problem worsens. Prescription Medications: Bactrim DS 800 mg / 160 mg: take 1 tablet orally every 12 hours for 5 days. No refill. Follow-up: Follow up with your doctor in two days even if well. Call for an appointment. Summary of care provided to patient. Understanding of the discharge instructions verbalized by patient. ADDITIONAL INFORMATION Drug Reaction: Allergic You are having an allergic reaction to a drug you have taken. This causes an itchy rash and sometimes swelling of various parts of the body. It may also cause trouble swallowing or breathing. The rash may take a few hours or up to two weeks to go away. In the future, remember to tell your doctor about your allergy to this drug so that drugs of this type won't be used again. Home Care: 1) Throw the drug away and do not take it again. The next reaction may be much worse. 2) Avoid tight clothing and anything that heats up your skin (hot showers/baths, direct sunlight) since heat will make itching worse. 3) An ice pack (ice cubes in a plastic bag, wrapped in a towel) will relieve local areas of intense itching and redness. Lanacaine cream or Solarcaine spray (or other product containing "benzocaine") will reduce the itching. 4) Avoid scratching which may worsen the reaction, damage your skin and lead to an infection. 5) Oral Benadryl (diphenhydramine) is an antihistamine available at drug and grocery stores. Unless a prescription antihistamine was given, Benadryl may be used to reduce itching if large areas of the skin are involved. Use lower doses during the daytime and higher doses at bedtime since the drug may make you sleepy. [NOTE: Do not use Benadryl if you have glaucoma or if you are a man with trouble urinating due to an enlarged prostate.] Claritin (loratadine) is an antihistamine that causes less drowsiness and is a good alternative for daytime use. Follow Up with your doctor or this facility in the next two days if your symptoms do not continue to improve. Get Prompt Medical Attention if any of the following occur: -- Wheezing, shortness of breath or difficulty swallowing -- Increased swelling in the face, eyelids, mouth, lips, tongue or throat -- Dizziness, weakness or fainting Chest Pain, Noncardiac Based on your visit today, the exact cause of your chest pain is not certain. Your condition does not seem serious and your pain does not appear to be coming from your heart. However, sometimes the signs of a serious problem take more time to appear. Therefore, please watch for the warning signs listed below. Home Care: Rest today and avoid strenuous activity. Take any prescribed medicine as directed. Follow Up with your doctor or this facility as instructed or if you do not start to feel better within 24 hours. Get Prompt Medical Attention if any of the following occur: A change in the type of pain: if it feels different, becomes more severe, lasts longer, or begins to spread into your shoulder, arm, neck, jaw or back Shortness of breath or increased pain with breathing Cough with dark colored sputum (phlegm) or blood Weakness, dizziness, or fainting Fever of 100.4F (38C) or higher, or as directed by your healthcare provider Swelling, pain or redness in one leg Chest Pain, Uncertain Cause Chest pain can happen for a number of reasons. Sometimes the cause can not be determined. If yourcondition does not seem serious, and your pain does not appear to be coming from your heart, your doctor may recommend watching it closely. Sometimes the signs of a serious problem take more time to appear. Therefore, watch for the warning signs listed below. Home care After your visit, follow these recommendations: Rest today and avoid strenuous activity. Take any prescribed medicine as directed. Follow-up care Follow up with your doctor or this facility as instructed or if you do not start to feel better within 24 hours. Call 911 Get immediate medical attention if any of the following occur: A change in the type of pain: if it feels different, becomes more severe, lasts longer, or begins to spread into your shoulder, arm, neck, jaw or back Shortness of breath or increased pain with breathing Weakness, dizziness, or fainting Rapid heart beat Get prompt medical attention Call your doctor right away if any of the following occur: Cough with dark colored sputum (phlegm) or blood Fever of 100.4F(38C) or higher, or as directed by your health care provider Swelling, pain or redness in one leg Sulfamethoxazole, Trimethoprim Oral tablet What is this medicine? SULFAMETHOXAZOLE; TRIMETHOPRIM or SMX-TMP (suhl fuh meth OK luisa zohl; trye METH oh prim) is a combination of a sulfonamide antibiotic and a second antibiotic, trimethoprim. It is used to treat or prevent certain kinds of bacterial infections. It will not work for colds, flu, or other viral infections. How should I use this medicine? Take this medicine by mouth with a full glass of water. Follow the directions on the prescription label. Take your medicine at regular intervals. Do not take it more often than directed. Do not skip doses or stop your medicine early. Talk to your package yarns drying machine operator regarding the use of this medicine in children. Special care may be needed. This medicine has been used in children as young as 2 months of age. What side effects may I notice from receiving this medicine? Side effects that you should report to your doctor or health lawn care technician as soon as possible: allergic reactions like skin rash or hives, swelling of the face, lips, or tongue breathing problems fever or chills, sore throat irregular heartbeat, chest pain joint or muscle pain pain or difficulty passing urine red pinpoint spots on skin redness, blistering, peeling or loosening of the skin, including inside the mouth unusual bleeding or bruising unusually weak or tired yellowing of the eyes or skin Side effects that usually do not require medical attention (report to your doctor or health lawn care technician if they continue or are bothersome): diarrhea dizziness headache loss of appetite nausea, vomiting nervousness What may interact with this medicine? Do not take this medicine with any of the following medications: aminobenzoate potassium dofetilide metronidazole This medicine may also interact with the following medications: JANUSZ inhibitors like benazepril, enalapril, lisinopril, and ramipril cyclosporine digoxin diuretics indomethacin medicines for diabetes methenamine methotrexate phenytoin potassium supplements pyrimethamine sulfinpyrazone tricyclic antidepressants warfarin What if I miss a dose? If you miss a dose, take it as soon as you can. If it is almost time for your next dose, take only that dose. Do not take double or extra doses. Where should I keep my medicine? Keep out of the reach of children. Store at room temperature between 20 to 25 degrees C (68 to 77 degrees F). Protect from light. Throw away any unused medicine after the expiration date. What should I tell my health care provider before I take this medicine? They need to know if you have any of these conditions: anemia asthma being treated with anticonvulsants if you frequently drink alcohol containing drinks kidney disease liver disease low level of folic acid or [id number] dehydrogenase poor nutrition or malabsorption porphyria severe allergies thyroid disorder an unusual or allergic reaction to sulfamethoxazole, trimethoprim, sulfa drugs, other medicines, foods, dyes, or preservatives or trying to get breast-feeding What should I watch for while using this medicine? Tell your doctor or health lawn care technician if your symptoms do not improve. Drink several glasses of water a day to reduce the risk of kidney problems. Do not treat diarrhea with over the counter products. Contact your doctor if you have diarrhea that lasts more than 2 days or if it is severe and watery. This medicine can make you more sensitive to the sun. Keep out of the sun. If you cannot avoid being in the sun, wear protective clothing and use a sunscreen. Do not use sun lamps or tanning beds/booths. You have been given the following additional information: Allergic Reaction, Drug Chest Pain, Noncardiac Chest Pain, Uncertain Cause Sulfamethoxazole, Trimethoprim Oral tablet (Electronically signed by Awa Wilson A.R.N.P. 12/27/2016 22:51)
--- NOTE | 2016-12-27 22:52 | ED MAR SUMMARY ---
..... Medication Administration Record [facility] [address] [place] [address] Patient: ZARINA SERNA Visit ID: [id number] 66y, F Weight: 81.6 kg Height/Length: 64 in BMI: 30.9 ALLERGIES: No Known Drug Allergy Given 21:32 12/27/2016 Brandie Lyman R.N. Medication Administered: BENADRYL [IVP] (DIPHENHYDRAMINE HCL), Dose: 25 mg IVP over 1 minute(s), Site: #1 left hand. Medication Ordered: Benadryl IV 25 mg (NOW).
== END 2016-12-27 21:35 | disposition home or self-care (01) ==
LOC: ED SRH 17:42
DX: R07.89 Other chest pain (principal); T37.8X5A Adverse effect of other specified systemic anti-infectives and antiparasitics, initial encounter; E11.9 Type 2 diabetes mellitus without complications; I10 Essential (primary) hypertension; Z79.84 Long term (current) use of oral hypoglycemic drugs; Z79.899 Other long term (current) drug therapy; Z79.82 Long term (current) use of aspirin
CPT/HCPCS: 90074; 90100; 90616; 91556; 92610; 95059